=== PATIENT | female | born 1995 ===

== ENCOUNTER 2017-11-06 14:39 | Emergency (ER) | payer MEDICAID ==
[2017-11-06] MEDS ORDERED: Sodium Chloride 0.9% 1,000 ML IV ONE (15:42)
[2017-11-06] MEDS ORDERED: Sodium Chloride 0.9% 1,000 ML ONE (15:59)
[2017-11-06 16:07] LABS: SQUAMOUS EPITHIAL 1 /hpf (0-5); URINE BACTERIA RARE (<OCC); URINE BILIRUBIN NEGATIVE (NEGATIVE); URINE BLOOD NEGATIVE (NEGATIVE); URINE CLARITY Clear (Clear); URINE COLOR Straw (YELLOW); URINE GLUCOSE (UA) NORMAL (Normal); URINE LEUKOCYTE ESTERASE NEG Leu/uL (Negative); URINE PROTEIN NEGATIVE (NEGATIVE); URINE UROBILINOGEN NORMAL mg/dL (0.2-1.0)
[2017-11-06 16:09] LABS: BASO % 0.3 % (0.0-2.0); EOS % 0.2 % (0.0-4.0); HEMOGLOBIN 11.2 g/dL (11.0-16.0); LYMPH # 2.9 K/uL (1.0-4.3); LYMPH % 21.1 % (20.0-40.0); MEAN CELL VOLUME 79.2 fL (81.0-99.0); MEAN CORPUSCULAR HEMOGLOBIN 26.2 pg (27.0-31.0); MEAN CORPUSCULAR HGB CONC 33.1 g/dL (33.0-37.0); MEAN PLATELET VOLUME 7.2 fL (7.2-11.7); MONO # 1.2 K/uL (0.0-0.8); MONO % 8.3 % (0.0-10.0); NEUT # 9.8 K/uL (1.8-7.0); NEUT % 70.1 % (50.0-75.0); RBC 4.29 Mil/uL (3.80-5.20); RED CELL DISTRIBUTION WIDTH 20.6 % (11.5-14.5); WHITE BLOOD COUNT 13.9 K/uL (4.8-10.8)
[2017-11-06 16:27] LABS: ALB/GLOB RATIO 1.2 (1.0-2.1); ALBUMIN 4.5 g/dL (3.5-5.0); ALT/SGPT 22 U/L (9-52); AST/SGOT 17 U/L (14-36); BLOOD UREA NITROGEN 9 mg/dL (7-17); CALCIUM 9.6 mg/dl (8.6-10.4); GFR NON-AFRICAN AMERICAN > 60; LIPASE 71 U/L (23-300)
[2017-11-06] MEDS ORDERED: Iodixanol 320 MG/ML 100 ML BOTTLE IV ONE (16:56)
--- NOTE | 2017-11-06 17:50 | US ---
Date of service: 11/06/2017 HISTORY: lower abd pain ? torsion COMPARISON: None available. TECHNIQUE: Real-time transabdominal pelvic ultrasound was performed. In addition a transvaginal pelvic ultrasound was necessary to better depict pelvic anatomy. FINDINGS: UTERUS: Measures 10.5 x 4.4 x 6.5 cm. Anteverted. ENDOMETRIUM: Measures 1.3 cm in diameter. CERVIX: No cervical abnormality identified. RIGHT OVARY: Measures 3.1 x 1.9 x 2.6 cm. Blood flow is demonstrated. LEFT OVARY: Not visualized. FREE FLUID: Small pelvic free fluid. OTHER FINDINGS: Complex nabothian cyst versus blood products spanning approximately 1.2 x 0.8 x 1.1 cm. IMPRESSION: The left ovary is not visualized. Complex nabothian cyst versus blood products spanning approximately 1.2 x 0.8 x 1.1 cm.
--- NOTE | 2017-11-06 18:20 | CT ---
Date of service: 11/06/2017 PROCEDURE: CT Abdomen and Pelvis with contrast HISTORY: lower abdominal pain COMPARISON: Not available TECHNIQUE: Contrast dose: 100 mL Visipaque 320 Radiation dose: Total exam DLP = 373.21 mGy-cm. This CT exam was performed using one or more of the following dose reduction techniques: Automated exposure control, adjustment of the mA and/or kV according to patient size, and/or use of iterative reconstruction technique. FINDINGS: LOWER THORAX: Unremarkable. LIVER: Unremarkable. No gross lesion or ductal dilatation. GALLBLADDER AND BILE DUCTS: Unremarkable. PANCREAS: Unremarkable. No gross lesion or ductal dilatation. SPLEEN: Unremarkable. ADRENALS: Unremarkable. No mass. KIDNEYS AND URETERS: Unremarkable. No hydronephrosis. No solid mass. VASCULATURE: Unremarkable. No aortic aneurysm. BOWEL: No bowel obstruction. No abnormal bowel loops are identified. APPENDIX: Normal appendix. PERITONEUM: Unremarkable. No free fluid. No free air. LYMPH NODES: Unremarkable. No enlarged lymph nodes. BLADDER: Poorly distended. Grossly normal. REPRODUCTIVE: Unremarkable uterus. The ovaries are identified. There is ill-defined low attenuation material to the right of the uterine fundus higher attenuation than water. This could represent high attenuation ascites. There was trace fluid noted on the pelvic ultrasound examination of the same date. This could also represent bowel. BONES: No acute fracture. OTHER FINDINGS: None. IMPRESSION: Ill-defined low attenuation material to the right lateral aspect of the uterus which is not so low in attenuation as simple fluid. Significance uncertain. No corresponding process identified on ultrasound examination of same date. This could represent collapsed bowel. If warranted consider follow-up with oral contrast and repeat CT.
[2017-11-06 18:37] VITALS: BP 122/77; PULSE 72; RESP 16; TEMP 98.3; O2SAT 100
--- NOTE | 2017-11-06 18:55 | C.PDOC ---
History Of Present Illness 22 y/o female present to the ED c/o lower abdominal pain for four days. She states she is currently on her menstrual period. The patient reports she relieved her first dose of Depo Provera four days ago. She denies experiencing any nausea, vomiting, vaginal discharge, or changes in PO intake. Time Seen by Provider: 11/06/17 15:37 Chief Complaint (Nursing): Abdominal Pain History Per: Patient History/Exam Limitations: no limitations Onset/Duration Of Symptoms: Days Current Symptoms Are (Timing): Still Present Location Of Pain/Discomfort: RLQ, LLQ Quality Of Discomfort: "Pain" Associated Symptoms: denies: Nausea, Vomiting, Diarrhea Recent travel outside of the [place]: No Past Medical History Reviewed: Historical Data, Nursing Documentation, Vital Signs Vital Signs: Last Vital Signs Temp 98.3 F 11/06/17 18:36 Pulse 72 11/06/17 18:36 Resp 16 11/06/17 18:36 BP 122/77 11/06/17 18:36 Pulse Ox 100 11/06/17 19:02 - Medical History PMH: No Chronic Diseases Other Surgeries: umbilical hernia repair Family History: States: Unknown Family Hx - Social History Hx Alcohol Use: No Hx Substance Use: No - Immunization History Hx Tetanus Toxoid Vaccination: No Hx Influenza Vaccination: No Hx Pneumococcal Vaccination: No Review Of Systems Except As Marked, All Systems Reviewed And Found Negative. Constitutional: Negative for: Fever Gastrointestinal: Positive for: Abdominal Pain. Negative for: Nausea, Vomiting , Diarrhea Genitourinary: Negative for: Vaginal Discharge Physical Exam - Physical Exam Appears: Well, Non-toxic, No Acute Distress Skin: Normal Color, Warm, Dry Head: Atraumatic, Normacephalic Eye(s): bilateral: PERRL, EOMI Ear(s): Bilateral: Normal Oral Mucosa: Moist Neck: Normal ROM, Supple Chest: Symmetrical Cardiovascular: Rhythm Regular, No Murmur Respiratory: Normal Breath Sounds, No Rales, No Rhonchi, No Wheezing Gastrointestinal/Abdominal: Soft, No Tenderness, No Distention Pelvic: Other (mild suprapubic tenderness) Extremity: Normal ROM Extremity: Bilateral: Normal Color And Temperature, Normal ROM Neurological/Psych: Oriented x3, Normal Speech Gait: Steady ED Course And Treatment - Laboratory Results Result Diagrams: 11/06/17 16:04 08/23/18 16:04 O2 Sat by Pulse Oximetry: 100 (RA) Pulse Ox Interpretation: Normal - CT Scan/US Abdomen/ Pelvis/ Transvaginal US Other Rad Studies (CT/US): Read By Radiologist, Radiology Report Reviewed CT/US Interpretation: FINDINGS: UTERUS: Measures 10.5 x 4.4 x 6.5 cm. Anteverted. ENDOMETRIUM: Measures 1.3 cm in diameter. CERVIX: No cervical abnormality identified. RIGHT OVARY: Measures 3.1 x 1.9 x 2.6 cm. Blood flow is demonstrated. LEFT OVARY: Not visualized. FREE FLUID: Small pelvic free fluid. OTHER FINDINGS: Complex nabothian cyst versus blood products spanning approximately 1.2 x 0.8 x 1.1 cm. IMPRESSION: The left ovary is not visualized. Complex nabothian cyst versus blood products spanning approximately 1.2 x 0.8 x 1.1 cm. Abdomen/ Pelvis CT Other Rad Studies (CT/US): Read By Radiologist, Radiology Report Reviewed CT/US Interpretation: FINDINGS: LOWER THORAX: Unremarkable. LIVER: Unremarkable. No gross lesion or ductal dilatation. GALLBLADDER AND BILE DUCTS : Unremarkable. PANCREAS: Unremarkable. No gross lesion or ductal dilatation. SPLEEN: Unremarkable. ADRENALS: Unremarkable. No mass. KIDNEYS AND URETERS: Unremarkable. No hydronephrosis. No solid mass. VASCULATURE: Unremarkable. No aortic aneurysm. BOWEL: No bowel obstruction. No abnormal bowel loops are identified. APPENDIX: Normal appendix. PERITONEUM: Unremarkable. No free fluid. No free air. LYMPH NODES: Unremarkable. No enlarged lymph nodes. BLADDER: Poorly distended. Grossly normal. REPRODUCTIVE: Unremarkable uterus. The ovaries are identified. There is ill- defined low attenuation material to the right of the uterine fundus higher attenuation than water. This could represent high attenuation ascites. There was trace fluid noted on the pelvic ultrasound examination of the same date. This could also represent bowel. BONES: No acute fracture. OTHER FINDINGS: None. IMPRESSION: Ill-defined low attenuation material to the right lateral aspect of the uterus which is not so low in attenuation as simple fluid. Significance uncertain. No corresponding process identified on ultrasound examination of same date. This could represent collapsed bowel. If warranted consider follow-up with oral contrast and repeat CT. Medical Decision Making Medical Decision Making: Impression: 22 y/o female with lower abdominal pain Plan: -Abd/ Pelvis CT -HCG -CMP -Lipase -CBC -IV Fluid -Toradol 30 mg IV -Urine Culture -UA -Pelvis US -Transvaginal US Disposition - Dis[facility] - Disposition: HOME/ ROUTINE Disposition Time: 18:20 Condition: IMPROVED Additional Instructions: SADE BUSTAMANTE, thank you for letting us take care of you today. The emergency medical care you received today was directed at your acute symptoms. If you were prescribed any medication, please fill it and take as directed. It may take several days for your symptoms to resolve. Return to the Emergency Department if your symptoms worsen, do not improve, or if you have any other problems. Please contact your doctor or call one of the physicians/clinics you have been referred to that are listed on the Patient Visit Information form that is included in your discharge packet. Bring any paperwork you were given at discharge with you along with any medications you are taking to your follow up visit. Our treatment cannot replace ongoing medical care by a primary care provider outside of the emergency department. Thank you for allowing the [facility] team to be part of your care today. Follow up with your primary care doctor in 2-3 days for re-evaluation and further management. 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 - Scribe Statement The provider has reviewed the documentation as recorded by the Scribe (Lola Ballard) Provider Attestation: All medical record entries made by the Scribe were at my direction and personally dictated by me. I have reviewed the chart and agree that the record accurately reflects my personal performance of the history, physical exam, medical decision making, and the department course for this patient. I have also personally directed, reviewed, and agree with the discharge instructions and disposition.
== END 2017-11-06 18:46 | disposition home or self-care (01) ==
LOC: C.ER 14:39
DX: R10.30 Lower abdominal pain, unspecified (principal)
CPT/HCPCS: 74177; 76830; 76856; 80053; 81001; 83690; 84702; 85025; 87086; 96374; 99285; J1885; J7030; Q9967

== ENCOUNTER 2018-05-25 17:36 | Emergency (ER) | payer OTHER, MEDICAID ==
[2018-05-25 18:27] VITALS: BP 123/73; PULSE 82; RESP 16; TEMP 98.1; O2SAT 99
[2018-05-25] MEDS ORDERED: Naproxen 550 mg Tab PO STA (19:03)
[2018-05-25] MEDS ORDERED: Naproxen 550 mg Tab PO ONE (19:09)
--- NOTE | 2018-05-25 19:58 | C.PDOC ---
History Of Present Illness 22 y/o female presents to the ED for complaints of left-sided back pain s/p slip and fall on 05/21/18. Patient states while at work she fell backward, landing on her left side and left buttocks. She denies any extremity weakness, numbness, paresthesias, or bowel or bladder incontinence. Now complains of left-sided back pain and left hip pain, worsening for the past 4 days. Time Seen by Provider: 05/25/18 18:07 Chief Complaint (Nursing): Back Pain History Per: Patient History/Exam Limitations: no limitations Onset/Duration Of Symptoms: Days (x 5) Current Symptoms Are (Timing): Still Present Associated Symptoms: denies: Incontinence, New Weakness, New Numbness Exacerbating Factor(s): Movement Recent travel outside of the [place]: No Past Medical History Reviewed: Historical Data, Nursing Documentation, Vital Signs Vital Signs: Last Vital Signs Temp 98.1 F 05/25/18 18:24 Pulse 82 05/25/18 18:24 Resp 16 05/25/18 18:24 BP 123/73 05/25/18 18:24 Pulse Ox 99 05/25/18 18:24 Surgical History: Hernia Repair Family History: States: Unknown Family Hx - Social History Hx Tobacco Use: No Hx Alcohol Use: No Hx Substance Use: No - Immunization History Hx Tetanus Toxoid Vaccination: No Hx Influenza Vaccination: No Hx Pneumococcal Vaccination: No Review Of Systems Except As Marked, All Systems Reviewed And Found Negative. Constitutional: Negative for: Fever, Chills Cardiovascular: Negative for: Chest Pain Gastrointestinal: Negative for: Nausea, Vomiting, Abdominal Pain Genitourinary: Negative for: Dysuria, Frequency, Incontinence Musculoskeletal: Positive for: Back Pain (left-sided), Leg Pain (left hip/buttock) Skin: Negative for: Rash Neurological: Negative for: Weakness, Numbness Physical Exam - Physical Exam Appears: Well, Non-toxic, No Acute Distress Skin: Warm, Dry, Ecchymosis (over the left buttocks), Other (5 cm abrasion, healing, to the left hip) Head: Atraumatic, Normacephalic Eye(s): bilateral: Normal Inspection, PERRL, EOMI Oral Mucosa: Moist Neck: Normal ROM, No Midline Cervical Tenderness, No Paracervical Tenderness, Supple Chest: Symmetrical, No Tenderness, No Ecchymosis, No Subcutaneous Emphysema Cardiovascular: Rhythm Regular, No Friction Rub, No Murmur Respiratory: Normal Breath Sounds, No Accessory Muscle Use Gastrointestinal/Abdominal: Bowel Sounds (active), Soft, No Tenderness Back: No Vertebral Tenderness, Paraspinal Tenderness (Left paralumbar tenderness) Extremity: Normal ROM, Tenderness (Left hip tenderness), No Deformity, No Swelling Pulses: Left Dorsalis Pedis: Normal, Right Dorsalis Pedis: Normal Neurological/Psych: Oriented x3, Normal Motor, Normal Sensation Gait: Steady ED Course And Treatment O2 Sat by Pulse Oximetry: 99 (RA) Pulse Ox Interpretation: Normal Medical Decision Making Medical Decision Making: Plan: - 550 mg PO Naproxen - LS Spine X-ray - Left Hip X-ray - Reassess X-rays show no acute findings. Patient educated regarding results and course of discharge. On reassessment, patient is resting comfortably, and is in no acute distress. Pt is ambulatory in the ED with steady gait. Patient was instructed to follow up with physician/clinic in 1-2 days for further evaluation. Disposition - Disposition Referrals: Nando Pedro MD [Non-Staff] - Disposition: HOME/ ROUTINE Disposition Time: 20:54 Condition: GOOD Additional Instructions: Follow up with the medical doctor/clinic within 1-2 days. Return if worsened. 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 - Scribe Statement The provider has reviewed the documentation as recorded by the Reginaldibmacario Vaca All medical record entries made by the Reginaldibe were at my direction and personally dictated by me. I have reviewed the chart and agree that the record accurately reflects my personal performance of the history, physical exam, medical decision making, and the department course for this patient. I have also personally directed, reviewed, and agree with the discharge instructions and disposition.
--- NOTE | 2018-05-26 08:30 | RAD ---
Date of service: 05/25/2018 PROCEDURE: HISTORY: fall hip pain COMPARISON: None TECHNIQUE: AP pelvis and frog's leg view. FINDINGS: Each superolateral hip joint space appears slightly narrowed-patient's age is noted. Trace early superolateral minimal acetabular cortical thickening-similar findings inferomedially in each acetabulum. Sacroiliac and pubic symphyseal joints unremarkable. IMPRESSION: No fracture or lytic lesion. If more sensitive evaluation is needed consider MRI of that hip.
--- NOTE | 2018-05-26 08:32 | RAD ---
Date of service: 05/25/2018 PROCEDURE: Radiographs of the Lumbar Spine. HISTORY: fall, low back pain COMPARISON: No prior. FINDINGS: BONES: Normal alignment. No listhesis. No fracture. DISC SPACES: Unremarkable. OTHER FINDINGS: Right stool retention. Redundant splenic flexure with moderate gas. IMPRESSION: No fracture or lytic lesion. Moderate stool retention.
== END 2018-05-25 21:00 | disposition home or self-care (01) ==
LOC: C.ER 17:36
DX: S30.0XXA Contusion of lower back and pelvis, initial encounter (principal); S70.02XA Contusion of left hip, initial encounter; W01.0XXA Fall on same level from slipping, tripping and stumbling without subsequent striking against object, initial encounter; Y92.89 Other specified places as the place of occurrence of the external cause; Y99.0 Civilian activity done for income or pay